=== PATIENT | female | born 1955 | race American Indian/Alaskan Native ===

== ENCOUNTER 2016-03-10 15:00 | Emergency (ER) | payer MEDICAID ==
--- NOTE | 2016-03-10 15:30 | Emergency Department Report ---
Chief Complaint: High BP Stated Complaint: FATIGUE/DIZZINESS/HEADACHE Time Seen by Provider: 03/10/16 15:27 - HPI History of Present Illness: 60 year old female presents with elevated BP, weakness, headache for 2 days. states that she has no issues with BP in the past. PMH is RA. states headache is mild. - Exam Vital Signs: Vital Signs 03/10/16 15:06 Temperature 98.1 F Pulse Rate 111 H Respiratory 20 Rate Blood Pressure 181/118 O2 Sat by Pulse 100 Oximetry Physical Exam: patient resting comfortably on wheelchair BP and HR are elevated AAOX3 lungs CTA cardio-RRR MSE screening note: Focused history and physical exam performed. Due to findings the following was ordered: ED Disposition for MSE Condition: Stable
[2016-03-10 16:15] LABS: Hematocrit 30.2 % (30.3-42.9); Mean Corpuscular HGB Conc 33 % (30-34); Platelet Count 208 K/mm3 (140-440); Red Blood Count 4.76 M/mm3 (3.65-5.03); White Blood Count 4.4 K/mm3 (4.5-11.0)
[2016-03-10 16:16] LABS: Mean Corpuscular Hemoglobin 21 pg (28-32); Mean Corpuscular Volume 64 fl (79-97); Red Cell Distribution Width 23.9 % (13.2-15.2)
[2016-03-10 16:31] LABS: INR 1.14 (0.87-1.13)
[2016-03-10 16:32] LABS: Partial Thromboplastin Time 31.2 Sec. (24.2-36.6)
[2016-03-10 16:47] LABS: Alanine Aminotransferase 5 units/L (7-56); Albumin 3.8 g/dL (3.9-5); Albumin/Globulin Ratio 0.7 %; Alkaline Phosphatase 105 units/L (35-129); Bilirubin,Total 0.5 mg/dL (0.1-1.2); Blood Urea Nitrogen 9 mg/dL (7-17); Calcium 9.3 mg/dL (8.4-10.2); Carbon Dioxide 25 mmol/L (22-30); Chloride 99.9 mmol/L (98-107); Glucose 93 mg/dL (65-100); Potassium 3.4 mmol/L (3.6-5.0); Sodium 139 mmol/L (137-145); Total Protein 9.4 g/dL (6.3-8.2)
[2016-03-10 16:51] LABS: Anion Gap 18 mmol/L
[2016-03-10 17:05] LABS: Basophils % (Manual) 0 % (0.0-1.8); Blastocytes % (Manual) 0 %
[2016-03-10 17:06] LABS: Anisocytosis 2+; Target Cells Few
[2016-03-10 17:07] LABS: Diff Status Complete; Schistocytes Rare
[2016-03-11] MEDS ORDERED: K-DUR PO ONE (00:27)
[2016-03-11] MEDS ORDERED: NORMODYNE IV ONE (00:38)
[2016-03-11] MEDS ORDERED: NACL 0.9% 1000 ML 1,000 ML IV ONE (00:38)
[2016-03-11] MEDS ORDERED: ANTIVERT PO ONE (00:38)
--- NOTE | 2016-03-11 00:40 | Emergency Department Report ---
HPI - General Chief Complaint: High BP Time Seen by Provider: 03/11/16 00:25 - HPI HPI: This is a 60-year-old Afro-[place] female presents to the emergency department by EMS from home with complaint of some vertigo-like dizziness that occurred last night and was there still this morning. It is improved but not completely resolve since. She denies any headache, vision change, nausea, vomiting, chest pain or shortness of breath. Patient recently moved here from [place] and therefore does not have a primary care doctor. Denies tobacco use or illicit drug use or abuse. She has a history of rheumatoid arthritis has caused some contractures to her right hand. She did not take anything for symptoms prior to presentation. She also complains of some sinus drainage for the past 2 days. No recent travel or sick contacts at home. Patient presents with very elevated blood pressure but denies any history of hypertension and therefore does not take anything for blood pressure control. ED Past Medical Hx - Past Medical History Previous Medical History?: Yes Hx Arthritis: Yes (rheumatoid) - Surgical History Past Surgical History?: Yes Additional Surgical History: right ankle - Social History Smoking Status: Never Smoker Substance Use Type: Prescribed - Medications Home Medications: Home Medications Medication Instructions Recorded Confirmed Last Taken Type Meclizine [Antivert] 25 mg PO BID PRN #16 tablet 03/11/16 Unknown Rx ED Review of Systems ROS: Stated complaint: FATIGUE/DIZZINESS/HEADACHE Other details as noted in HPI Comment: All other systems reviewed and negative Constitutional: denies: chills, fever Eyes: denies: eye pain, eye discharge, vision change ENT: congestion (sinus). denies: ear pain, throat pain Respiratory: denies: cough, shortness of breath, wheezing Cardiovascular: denies: chest pain, palpitations Gastrointestinal: denies: abdominal pain, nausea, diarrhea Genitourinary: denies: urgency, dysuria, discharge Musculoskeletal: denies: back pain, joint swelling, arthralgia Skin: denies: rash, lesions Neurological: vertigo. denies: headache, numbness, paresthesias Physical Exam - Physical Exam Vital Signs: Vital Signs 03/10/16 03/11/16 15:06 00:13 Temperature 98.1 F 99.0 F Pulse Rate 111 H 130 H Respiratory 20 18 Rate Blood Pressure 181/118 174/120 O2 Sat by Pulse 100 100 Oximetry Physical Exam: GENERAL: The patient is well-developed well-nourished. HEENT: Normocephalic. Atraumatic. Extraocular motions are intact. Patient has moist mucous membranes. Pupils equal reactive to light bilaterally. No nystagmus. No facial asymmetry. Oropharynx clear. Tongue is midline. NECK: Supple. Trachea is midline. CHEST/LUNGS: Clear to auscultation. There is no respiratory distress noted. HEART/CARDIOVASCULAR: Regular. There is mild tachycardia. There is no gallop rub or murmur. ABDOMEN: Abdomen is soft, nontender. Patient has normal bowel sounds. There is no abdominal distention. SKIN: There is no rash. There is no diaphoresis. NEURO: The patient is awake, alert, and oriented. The patient is cooperative. The patient has no focal neurologic deficits. The patient has normal speech. MUSCULOSKELETAL: There is no tenderness. Patient has chronic contracture of the right hand secondary to her rheumatoid arthritis. Muscle strength 5 out of 5 for upper and lower extremities bilaterally. There is no limitation range of motion. ED Course Vital Signs 03/10/16 03/11/16 15:06 00:13 Temperature 98.1 F 99.0 F Pulse Rate 111 H 130 H Respiratory 20 18 Rate Blood Pressure 181/118 174/120 O2 Sat by Pulse 100 100 Oximetry ED Medical Decision Making - Lab Data Result diagrams: 03/10/16 15:55 03/10/16 15:55 - EKG Data -: EKG Interpreted by Me EKG shows normal: sinus rhythm, axis (Right axis), intervals, QRS complexes, ST- T waves Rate: normal - EKG Data When compared to previous EKG there are: previous EKG unavailable Interpretation: normal EKG - Radiology Data Radiology results: image reviewed interpreted by me: Chest x-ray shows hyperinflation of the lungs but otherwise no signs of pneumonia, pneumothorax or pleural effusions. No osseous abnormality seen. - Medical Decision Making 60-year-old female presents to the emergency department with vertigo like symptoms. She also presents with some elevated blood pressure without a history of hypertension. Patient EKG does not show any signs of ST elevation [place] , dysrhythmia or ischemia. Chest x-ray does not show any acute process. Patient's labs and then mostly unremarkable including negative troponins 2 and normal thyroid function. There are no signs of infection or electrolyte abnormalities, renal insufficiency a glucose abnormalities. Patient was going to be given some labetalol for her hypertension but her blood pressure came down to a much more reasonable level without any medication. Patient was given some IV fluid resuscitation and Antivert. She was reevaluated multiple times for multiple hours and says she is feeling much better. Her dizziness and/or vertigo has completely resolved. Patient has been seen getting up and down from the gurney and moving around the room without any instability. Patient's tachycardia has completely resolved and may be related to some dehydration. Patient has no focal, motor or sensory deficits. Patient appears safe for discharge home at this time. She'll be given referrals for both primary care and ear nose and throat. She'll be given a prescription for some Antivert. She will return to the ER with any worsening of her symptoms or any acute distress. - Differential Diagnosis vertigo, TIA, thyroid dysfunction, UTI, [place] Critical Care Time: No Critical care attestation.: If time is entered above; I have spent that time in minutes in the direct care of this critically ill patient, excluding procedure time. ED Disposition Clinical Impression: Vertigo, Dizziness Hypertension Qualifiers: Hypertension type: essential hypertension Qualified Code(s): I10 - Essential ( primary) hypertension Disposition: DISCHARGED TO HOME OR SELFCARE Is pt being admited?: No Does the pt Need Aspirin: No Condition: Stable Instructions: Hypertension (ED), Vertigo (ED), Dizziness (ED) Additional Instructions: Please follow-up with a primary care doctor in the next few days. I've also given you a referral for a local ear nose and throat physician to follow-up regarding vertigo. Return to the emergency department with any worsening of your symptoms or any acute distress. Prescriptions: Meclizine [Antivert] 25 mg PO BID PRN #16 tablet PRN Reason: Vertigo Referrals: ROBERT BOYKIN MD [Staff Physician] - 3-5 Days ANTONIETA HERNANDEZ MD [Staff Physician] - 3-5 Days TIFFANY ANDERSON MD [Staff Physician] - 3-5 Days Time of Disposition: 04:40
--- NOTE | 2016-03-11 01:52 | Admit Criteria Form ---
Admission Criteria Documentation: HYPERTENSION Clinical Indications for Admission to Inpatient Care ( Place "X" for any and all applicable criteria): Admission is indicated for ANY ONE of the following(1)(2)(3)(4): [ ]I. Hypertensive emergency, with evidence of acute and progressing target organ disease as indicated by ANY ONE of the following: [ ]a) Hypertensive encephalopathy (eg, confusion, altered mental status) [ ]b) Cerebral infarction [ ]c) Intracranial hemorrhage [ ]d) Myocardial ischemia or infarction [ ]e) Pulmonary edema [ ]f) Aortic dissection [ ]g) Seizure [ ]h) Acute renal insufficiency [ ]i) Papilledema [ ]j) Microangiopathic hemolytic anemia [ ]II. Adrenergic crisis (eg, severe hypertension due to pheochromocytoma crisis, cocaine or amphetamine intoxication, or clonidine withdrawal) [ ]III. Severe hypertension (SBP greater than 180 mmHg or DBP greater than 110 mmHg or greater than the 95th percentile for age, gender, and height in pediatric patients) that cannot be controlled (eg, to SBP less than 160 mmHg and DBP less than 100 mmHg in adults) by treatment with oral medication in emergency department or observation care Extended stay beyond goal length of stay may be needed for(11)(12)(13): [ ]a) Persistent hypertensive encephalopathy [ ]b) Continuation of pulmonary edema [ ]c) Recurring or persistent severe hypertension [ ]d) Target organ damage (eg, angina, stroke, aortic dissection) [ ]e) Associated renal insufficiency The original [employer] content created by [employer] has been revised. The portions of the content which have been revised are identified through the use of italic text or in bold, and [facility] has neither reviewed nor approved the modified material. All other unmodified content is copyright [facility]. Please see references footnoted in the original [facility] edition 2016 Admission Criteria Met: Pending
[2016-03-11 04:49] VITALS: BP 131/86
--- NOTE | 2016-03-11 09:43 | XRay Report ---
CHEST 2 VIEWS: INDICATION: Weakness. Patient in wheelchair. COMPARISON: None similar at this institution. FINDINGS: PA and lateral chest radiographs, 3 images, demonstrate normal cardiomediastinal silhouette. Clear lungs. Possible osteopenia. CONCLUSION: No acute disease. Thank you for the opportunity to participate in this patient's care.
== END 2016-03-11 04:32 | disposition home or self-care (01) ==
LOC: ED 15:00
DX: R42 Dizziness and giddiness (principal); I10 Essential (primary) hypertension; M06.9 Rheumatoid arthritis, unspecified
CPT/HCPCS: 36415; 71020; 80053; 84443; 84484; 85007; 85025; 85610; 85730; 93005; 93010; 96360; 99285; J7030